=== PATIENT | female | born 1965 | race Two or more races ===

== ENCOUNTER → 2019-12-01 08:00 | Outpatient (CLI) | payer OTHER ==
[~2019-12-01] VITALS: Ht 149.9 cm; Wt 60.3 kg
[~2019-12-01 08:00] MED LIST: ATENOLOL100 MG PO; ATORVASTATIN CA80 MG PO; CLONAZEPAM1 MG PO; COLACE100 MG PO; FENOFIBRATE160 MG PO; GABAPENTIN400 MG PO; OMEPRAZOLE40 MG PO; PERCOCET 5-3251 EACH PO
== END | disposition home or self-care (01) ==
LOC: LAB 08:00 → O/R 12-02 08:30 → EDSTATUS 12-08 08:30 → SURH 12-08 08:30
PROVIDERS: ATTEND Orthopaedic Surgery Orthopaedic Surgery of the Spine
DX: I10 Essential (primary) hypertension (principal); Z20.828 Contact with and (suspected) exposure to other viral communicable diseases; M50.021 Cervical disc disorder at C4-C5 level with myelopathy; M50.022 Cervical disc disorder at C5-C6 level with myelopathy; M50.023 Cervical disc disorder at C6-C7 level with myelopathy

== ENCOUNTER 2020-02-01 11:45 | Inpatient (IN) | payer OTHER ==
[~2020-02-01] VITALS: Ht 149.9 cm; Wt 61.2 kg
[~2020-02-01 11:45] MED LIST changes: -CLONAZEPAM1 MG PO; -COLACE100 MG PO; -PERCOCET 5-3251 EACH PO
[2020-02-03] MEDS ORDERED: COLACE100 MG PO (07:58)
[2020-02-03] MEDS ORDERED: PERCOCET 5-3251 EACH PO (07:58)
[2020-02-03] MEDS ORDERED: CLONAZEPAM1 MG PO (07:58)
== END 2020-02-03 16:40 | disposition home or self-care (01) | DRG 473 ==
LOC: SURG 02-02 06:00 → O/R 02-02 06:00 → SURH 02-02 11:45 → SURG 02-02 17:39
PROVIDERS: ADMIT Orthopaedic Surgery Orthopaedic Surgery of the Spine; ATTEND Orthopaedic Surgery Orthopaedic Surgery of the Spine
PROC: 0RG2070 Fusion of 2 or more Cervical Vertebral Joints with Autologous Tissue Substitute, Anterior Approach, Anterior Column, Open Approach (ICD-10-PCS; 2020-02-02)
PROC: 0RT30ZZ Resection of Cervical Vertebral Disc, Open Approach (ICD-10-PCS; 2020-02-02)
PROC: 3E0U0GB Introduction of Recombinant Bone Morphogenetic Protein into Joints, Open Approach (ICD-10-PCS; 2020-02-02)
PROC: 07DS3ZZ Extraction of Vertebral Bone Marrow, Percutaneous Approach (ICD-10-PCS; 2020-02-02)
PROC: 0RG20A0 Fusion of 2 or more Cervical Vertebral Joints with Interbody Fusion Device, Anterior Approach, Anterior Column, Open Approach (ICD-10-PCS; principal; 2020-02-02 17:15)
DX: M50.023 Cervical disc disorder at C6-C7 level with myelopathy (principal); I10 Essential (primary) hypertension